=== PATIENT | female | born 1960 | race Caucasian/White ===

== ENCOUNTER 2021-07-22 14:01 | Outpatient (CLI) | payer MEDICAID, SELFPAY ==
--- NOTE | 2021-07-22 14:13 | USCV_ITS ---
Tereza Duggan Age: 60 Gender: F : 1960 Exam Date: 07/22/2021 14:28 Ordering Phys: Melly Sin Technologist: Exam Location: [facility] [place] Indication: MURMUR BP: 160 / 80 HR: 69 Rhythm: Sinus Technical Quality: Adequate MEASUREMENTS (Male / Female) Normal Values 2D ECHO LV Diastolic Diameter PLAX 4.1 cm 4.2 - 5.9 / 3.9 - 5.3 cm LV Systolic Diameter PLAX 1.8 cm IVS Diastolic Thickness 1.1 cm 0.6 - 1.0 / 0.6 - 0.9 cm IVS Systolic Thickness 1.6 cm LVPW Diastolic Thickness 1.4 cm 0.6 - 1.0 / 0.6 - 0.9 cm LVPW Systolic Thickness 1.2 cm LVOT Diameter 2.1 cm LV Ejection Fraction 2D Teich 87.7 % LV Ejection Fraction MOD 2C 49.7 % LV Ejection Fraction 2C AL 47.8 % LA Diameter 3.8 cm LA Width 3.9 cm LA Height 5.7 cm RA Width 3.1 cm RA Height 4.0 cm Aorta at Sinotubular Diameter 2.3 cm DOPPLER AV Peak Velocity 204.0 cm/s MV Area PHT 5.0 cm squared Mitral E to A Ratio 0.5 MV E' Velocity 35.5 cm/s Mitral E to MV E' Ratio 10.7 Mitral E to LV E' Lateral Ratio 9.6 Mitral E to LV E' Septal Ratio 12.4 TR Peak Velocity 207.8 cm/s TR Peak Gradient 17.3 mmHg TV Peak E Velocity 69.0 cm/s Right Atrial Pressure 3.0 mmHg Pulmonary Artery Systolic Pressu 20.3 mmHg PV Peak Velocity 83.0 cm/s FINDINGS Left Ventricle Normal left ventricular cavity size. Basal septal hypertrophy. Normal left ventricular systolic function. Left ventricular ejection fraction is estimated at 65-70 %. Grade I diastolic dysfunction (abnormal relaxation filling pattern), normal to mildly elevated filling pressures. Right Ventricle Normal right ventricular size and systolic function. Right ventricular systolic pressure 36 mmHg. Right Atrium Normal right atrial size. Left Atrium Mildly increased left atrial size. Mitral Valve Structurally normal mitral valve. No mitral valve stenosis. Trace mitral valve regurgitation. Aortic Valve Aortic valve not well visualized. Probably trileaflet aortic valve. Flow acceleration noted through left ventricular outflow tract. LVOT gradient at rest showed 17 mm Hg ( 2 m/s) and 97 mm Hg (4.9 m/s) with valsalva (could be overestimated d/t poor doppler signals). No aortic valve stenosis. No aortic valve regurgitation. Tricuspid Valve Structurally normal tricuspid valve. No tricuspid valve stenosis. Trace tricuspid valve regurgitation. Pulmonic Valve Pulmonic valve not well visualized. No pulmonary valve stenosis. Pericardium No pericardial effusion. Aorta Aorta not well visualized. CONCLUSIONS 1. This is a technically difficult study. 2. Normal left ventricular size and systolic function. Basal septal hypertrophy. Left ventricular ejection fraction is estimated at 65-70 %. Grade I diastolic dysfunction (abnormal relaxation filling pattern), normal to mildly elevated filling pressures. 3. Normal right ventricular size and systolic function. 4. Mildly increased left atrial size. 5. LVOT gradient at rest showed 17 mm Hg ( 2 m/s) and 97 mm Hg (4.9 m/s) with valsalva (could be overestimated d/t poor doppler signals). 6. Pulmonary artery pressure estimated at 36 mmHg. 7. These findings may be suggestive of hypertrophic obstructive cardiomyopathy. Clinical correlation is advised. Margy George MD (Electronically Signed) Final Date: 25 July 2021 16:16 S
== END 2021-07-22 14:02 | disposition home or self-care (01) ==
LOC: RAD 14:11
PROVIDERS: PCP Nurse Practitioner Family; Visit Provider Nurse Practitioner Family
DX: R01.1 Cardiac murmur, unspecified (principal); I51.7 Cardiomegaly; I51.9 Heart disease, unspecified
CPT/HCPCS: 93306